=== PATIENT | male | born 1985 | race Caucasian/White ===

== ENCOUNTER 2017-03-07 00:04 | Emergency (ER) | payer OTHER ==
[~2017-03-07] VITALS: Ht 172.7 cm; Wt 93.0 kg
[2017-03-07] MEDS ORDERED: LITH300T3 PO (00:24)
[2017-03-07] MEDS ORDERED: LURA80TA PO (00:24)
--- NOTE | 2017-03-07 00:31 | NUR ---
Dr. Jeffrey at bedside for eval.
[2017-03-07 01:18] VITALS: BP 139/85
--- NOTE | 2017-03-07 01:18 | NUR ---
dcPatient discharged to home in stable conditon. Written and verbal after care instructions given. Patient verbalizes understanding of instructions. Patient left with stable gait.
== END 2017-03-07 01:19 | disposition home or self-care (01) ==
LOC: ER 00:09
DX: R07.89 Other chest pain (principal); F31.9 Bipolar disorder, unspecified; F10.20 Alcohol dependence, uncomplicated
CPT/HCPCS: 36415; 70030-TC; 71010; 93005; A4663

== ENCOUNTER 2022-09-17 12:42 | Emergency (ER) | payer BC, OTHER ==
[~2022-09-17] VITALS: Ht 170.2 cm; Wt 102.1 kg
[~2022-09-17 12:42] MED LIST: LITH300T3 PO; LURA80TA PO
[2022-09-17 13:36] LABS: HEMATOCRIT 42.5 % (36.7-47.1); MEAN CORPUSCULAR HEMOGLOBIN 29.9 uug (23.8-33.4); MEAN CORPUSCULAR VOLUME 87.3 fL (73.0-96.2); PLATELET COUNT (AUTO) 242 K/uL (152-348)
[2022-09-17 13:41] LABS: CARBON DIOXIDE 30 mmol/L (21-32); CHLORIDE 105 mmol/L (98-107); CREATININE 0.9 mg/dL (0.6-1.3); GLUCOSE 108 mg/dL (74-106); POTASSIUM 4.1 mmol/L (3.5-5.1); UREA NITROGEN, BLOOD 12 mg/dL (7-18)
--- NOTE | 2022-09-17 13:41 | NUR ---
PT IS IN ROOM #1B. DR PRAKASH EVALUATED THE PT.
[2022-09-17] MEDS ORDERED: ALBU8.5H8 INH (16:04)
--- NOTE | 2022-09-17 16:15 | NUR ---
PT D/C'd TO HOME . D/C INSTRUCTIONS GIVEN TO THE PT BY DR PRAKASH.
[2022-09-17 16:16] VITALS: BP 132/78
== END 2022-09-17 16:17 | disposition home or self-care (01) ==
LOC: ER 12:42
DX: R07.89 Other chest pain (principal); Z86.16 Personal history of COVID-19; F31.9 Bipolar disorder, unspecified; F42.9 Obsessive-compulsive disorder, unspecified; Z79.899 Other long term (current) drug therapy
CPT/HCPCS: 36415; 71045; 84484; 85025; 93005; A4663